=== PATIENT | female | born 1965 | race Caucasian/White ===

== ENCOUNTER 2024-10-28 08:41 | Observation (INO) ==
[2024-10-28 09:32] LABS: Basophils % (auto) 1.8 %; Eosinophils # (auto) 0.22 K/uL (0.00-0.50); Eosinophils % (auto) 3.9 %; Hematocrit (blood only) 42.1 % (37.0-47.0); Immature Granulocytes # (auto) 0.01 K/uL (0.01-0.20); Immature Granulocytes % (auto) 0.2 %; Lymphocytes # (auto) 1.55 K/uL (1.20-3.40); Lymphocytes % (auto) 27.1 %; Mean Corpuscular Hemoglobin 26.3 pg (25.0-34.0); Mean Corpuscular Hgb Conc 33.3 g/dL (32.0-36.0); Mean Corpuscular Volume 79.1 fL (80.0-100.0); Mean Platelet Volume 8.7 fL (9.4-12.4); Neutrophils # (auto) 3.43 K/uL (1.40-6.50); Platelet Count 451 K/uL (130-400); RDW Coefficient of Variation 14.2 % (11.5-14.5); RDW Standard Deviation 40.8 fL (36.4-46.3); Red Blood Count 5.32 M/uL (4.20-5.40); White Blood Count 5.71 K/ul (4.8-10.8)
[2024-10-28 09:52] LABS: Alanine Aminotransferase 19 U/L (7-52); Albumin Globulin Ratio 1.4 (0.9-2); Albumin Level 4.3 gm/dl (3.4-5.0); Alkaline Phosphatase 79 U/L (34-104); Anion Gap 7 (3-11); Aspartate Aminotransferase 21 U/L (13-39); BUN Creatinine Ratio 11.5 (10-20); Bilirubin,Total 0.4 mg/dl (0.2-1.0); Blood Urea Nitrogen 10 mg/dl (6-23); Calcium 9.5 mg/dl (8.6-10.3); Carbon Dioxide 27 mmol/L (21-32); Chloride 104 mmol/L (98-107); Creatinine Clr Calc Pharmacy 71.5 ml/min; Globulin 3.1 gm/dl (2.5-4.0); Glucose 159 mg/dl (70-99(Fasting)); Potassium 3.9 mmol/L (3.5-5.1); Sodium 138 mmol/L (136-145); Total Protein 7.4 gm/dl (6.0-8.3)
[2024-10-28 09:58] LABS: Troponin I High Sensitivity 3.2 pg/ml (0-14)
--- NOTE | 2024-10-28 09:58 | XRay Report ---
XR chest 1V portable CLINICAL HISTORY: Dyspnea. Sarcoidosis. COMPARISON STUDY: Lung screening CT May 05, 2024. Chest radiograph November 28, 2023. FINDINGS: There is no pneumothorax or pleural effusion. There is no consolidation to suggest pneumoni a. Mild interstitial thickening is likely chronic. Bilateral hilar prominence is unchanged. Cardiomed iastinal silhouette is stable. IMPRESSION: No acute cardiopulmonary findings. No change in appearance of the chest. ACT 112: Negative or not required by law. Electronically signed by: Ryan Leon M.D. 10/28/2024 9:57 AM
[2024-10-28] MEDS: ALBUTEROL 0.5% NEB SOLN 2.5 MG/0.5 ML VIAL NEB STA (10:32)
[2024-10-28 11:04] LABS: Base Excess VBG 4.8 mEq/L; HCO3 VBG 25 mmol/L; Oxygen Saturation VBG 85.2 %; PCO2 VBG 24 mmHg (38-50); PO2 VBG 42 mmHg; pH VBG 7.62 (7.36-7.41)
[2024-10-28 11:53] LABS: D Dimer 1360 ug/L FEU (0-500)
[2024-10-28] MEDS: methylPREDNISolone 125 MG/2 ML VIAL IV STA (12:59)
--- NOTE | 2024-10-28 13:03 | History & Physical Report ---
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 Mrs Daly had relief of sym ptoms in the ER with bronchodilators. #dyspnea on exertion - -differential - active pulmonary sarcoidosis vs reactive airway disease vs cardiac (ie pulmonary edema or ischemia) vs PE vs other -CTA chest planned for later today to r/o PE; has contrast allergy (rash); will have 2 doses of solumedrol 40mg each, with benadryl later today, then the scan -the steroids will provide benefit if the issue is active sarcoid -obtain echo, r/o CHF contributing to symptoms -plan for pulmonary consultation tomorrow #history of biopsy-proven pulmonary sarcoidosis - -she has never been on systemic therapy for her disease -diagnosed in 2022 -check sed rate, crp -check 1,25-OH vit D level; if high this suggests active disease -will obtain 2 doses of solumedrol today in prep for CTA chest -tomorrow change to solumedrol 40mg daily -cont bronchodilators - she typically does not do well on MDIs - will order brovana BID + pulmicort BID -pulmonary consultation for additional recs #anxiety/depression - -cont home meds including buspar prn, trazodone HS, duloxetine daily, wellbutrin #GERD - -cont PPI #hyperlipidemia - -cont zetia #previous PFTs showing +bronchodilator response - -c/w reactive airway disease -likely due to pulmonary sarcoid -see above #pre-diabetes - -glucose upon arrival today was 159 -hemoglobin a1c 6% c/w mild pre-DM -DM diet -with steroid usage her BSGs will rise -check BSGs ac/hs -novolog SSI -good candidate for once-daily metformin at d/c or similar #DVT proph - -add once daily lovenox tomorrow #long-standing tobacco use - -pt reports she had cut back to 1-2 cigarettes/day, then has been fully smoke-free last week or two -offered nicoderm patch but declined such placed on observation status for now History of Present Illness Chief Complaint: severe dyspnea particularly on exertion Primary Care Provider: Mayi Morales MD 58yo female with history of pulmonary sarcoidosis (dx 10/2022 via lung bx), prior tibial bone biopsy showing non-caseating granulomas in 2019, 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 She also had PND with orthopnea 2 nights ago. She has had dyspnea on exertion for many years, typically intermittent, but recently it has been daily and persistent. She can only walk about 50 feet at most and will get short of breath. Denies any weight gain, LE edema, or chest pain. The tightness in her chest does get better with resting. She was taking her albuterol inhaler at home without any relief of symptoms. In the ER today she received an albuterol neb x 1 with partial relief of her dyspnea. Denies any recent fevers, chills, URI symptoms, or significant cough (coughs just occasionally). No skin rashes. Denies sick contacts. Denies travel. Records indicate she was advised to have a stress test in the last year but never had this done. Denies any personal or family history of CAD. One of her sisters has sarcoid and her son has Crohn's disease. With respect to tobacco she has been using since age 11. In her younger years she smoked 1/2PPD to 1PPD. She was recently smoking 1-2 cigarettes a day or less; now she is not smoking at all. Declines nicoderm patch. Allergies Allergy/AdvReac Type Severity Reaction Status Date / Time Iodinated Contrast Media Allergy Intermediate Rash Verified 09/22/24 13:33 [email or web address] [From Myrbetriq] Allergy Intermediate Headache Verified 09/22/24 13:33 clarithromycin Allergy Unknown Unknown Verified 09/22/24 13:33 Contrast Media Ready-Box MISC Allergy Intermediate Rash Uncoded 09/22/24 13:33 STEROIDS Allergy ITCHING Uncoded 09/22/24 13:33 Budesonide-formoterol AdvReac Severe sore throat Uncoded 09/22/24 13:33 Home Medications Medication Instructions Recorded Confirmed Type multivitamin (Multiple Vitamins 1 tab PO DAILY 02/14/22 10/28/24 History tablet) krill [id number]-epa 300 1 cap PO DAILY 09/05/22 10/28/24 History mg-90 mg (27 mg-45 mg) capsule aspirin 81 mg tablet,delayed 81 mg PO DAILY 12/31/23 10/28/24 History release albuterol sulfate 90 mcg/actuation 1 inh inhalation QID PRN Shortness 02/11/24 10/28/24 Rx aerosol inhaler Of Breath Or Wheezing #6.7 grams albuterol sulfate 2.5 mg/3 mL 2.5 mg inhalation Q6H PRN 03/05/24 10/28/24 History (0.083 %) solution for nebulization shortness of breath or wheezing duloxetine 60 mg capsule,delayed 60 mg PO QAM #90 caps 03/18/24 10/28/24 Rx release (Cymbalta) ciclopirox 8 % topical solution 1 applic topical DAILY 4 months 03/26/24 10/28/24 Rx #6.6 mL Spacer for Inhaler #1 ea 05/14/24 09/08/24 Rx fremanezumab-vfrm 225 mg/1.5 mL 225 mg (1.5 mL) subcut MONTHLY 06/11/24 10/28/24 Rx subcutaneous syringe (Ayoovaba #4.5 mL Syringe) buspirone 15 mg tablet 15 mg PO BID PRN anxiety #180 tabs 07/15/24 10/28/24 Rx salmeterol 50 mcg/dose blister 1 inh inhalation Q12H #60 ea 08/10/24 10/28/24 Rx powder for inhalation (Serevent Diskus) gabapentin 600 mg tablet 600 mg PO HS #90 tabs 09/14/24 10/28/24 Rx bupropion HCl 150 mg 24 hr tablet, 150 mg PO QAM #90 tabs 09/22/24 10/28/24 Rx extended release ezetimibe 10 mg tablet 10 mg PO DAILY #90 tabs 10/06/24 10/28/24 Rx cetirizine 10 mg tablet (Allergy 10 mg PO DAILY 10/28/24 10/28/24 History Relief (cetirizine)) fluticasone propionate 50 1 spray intranasal DAILY 10/28/24 10/28/24 History mcg/actuation nasal spray,suspension lactobacillus combination no.4 3 3,000 mmu cells PO DAILY 10/28/24 10/28/24 History billion cell capsule (Probiotic) omeprazole 20 mg capsule,delayed 40 mg PO QAM 10/28/24 10/28/24 History release rizatriptan 10 mg tablet (Maxalt) 10 mg PO DIRECTED PRN migraine 10/28/24 10/28/24 History headache trazodone 50 mg tablet 50 - 100 mg PO DAILY Sleep 10/28/24 10/28/24 History Past Med/Surg History Problem List (Updated 10/28/24 @ 20:37 by Willem Tolentino MD) Prediabetes Acute exacerbation of chronic obstructive airways disease (Acute) Dyspnea on exertion (Acute) Chest pain Tremor Urinary incontinence Greater trochanteric bursitis Physical deconditioning Arthrofibrosis of total knee replacement Pulmonary sarcoidosis (Acute) Osteoarthritis of knees, bilateral Statin intolerance Headache Arthritis Medical History (Updated 10/28/24 @ 20:37 by Willem Tolentino MD) 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 Obesity (BMI 30-39.9) Cigarette nicotine dependence Lumbosacral radiculopathy Chronic migraine without aura or status migrainosus Restless leg syndrome Fatty liver Mixed hyperlipidemia Generalized anxiety disorder Gastroesophageal reflux disease Allergic rhinitis Depression Primary osteoarthritis of right knee Osteoarthritis of right knee Lesion of parotid gland s/p surgery Lumbar disc herniation Sarcoidosis Overactive bladder Post traumatic stress disorder History of COVID-19 03/2022 > "resolved" Asthma Bilateral hilar adenopathy syndrome Pulmonary nodules EBUS + bx 11/02/22 Surgical History Status post right knee replacement 05/17/23 H/O parotidectomy Left Superficial Parotidectomy (01/04/23): Grade view 1, MAC#3, ETT 7 at [facility] S/P bronchoscopy Bronchoscopy/EBUS (11/02/22): GA, LMA #4 I-Gel without issue H/O foot surgery Right History of anesthesia reaction "Awareness" with foot surgery and colonoscopy Remote post-op nausea History of partial hysterectomy History of esophagogastroduodenoscopy (EGD) History of colonoscopy History of tooth extraction Hx laparoscopic cholecystectomy History of repair of right rotator cuff Right History of arthroscopy of left knee Family History (Updated 10/28/24 @ 13:38 by Willem Tolentino MD) Aunt Breast cancer Sister Sarcoid Son Crohn's disease Grandfather (Maternal) Heart disease Mother , age 70 Dementia Father , age 63 Diabetes Other No family history of adverse response to anesthesia Denies family history of Ovarian cancer Prostate cancer Coronary heart disease Myocardial infarction Colorectal cancer Social History (Updated 10/28/24 @ 13:39 by Willem Tolentino MD) Smoking Status: Never smoker Tobacco Type: Cigarettes Age Started Using Tobacco: 11; packs per day: 1; Cigarettes Per Day: 2 cigs/day (previous 2PPD); Second Hand Exposure: Yes (hx in the past); Do You Dip or Chew Tobacco: No; Hx Alcohol Use: No Hx Substance Use: No Preferred Language: Hungarian Communication Ability: Effective Nurse Anesthetist Required: No Beliefs That Will Affect Care: None marital status: / marital status details: Spouse Current Living Situation: Alone Current Living Situation Comment: lives at [facility] current occupational status: employed current occupation: PATIENT ACCESS REGISTRATION at [employer] How many Children do You have: 1 How many Children do You have Comment: son lives in [place] Other Information That Helps Us Care for You: No Feels Safe at Home: Yes Safety Concerns: Feels Safe At This Time Physical Activity Frequency Comment: MODERATELY ACTIVE Assistive Devices: Denture - Upper, Denture - Lower and Glasses Review of Systems Review of Systems: gen - no fevers, no chills, normal appetite, no weight loss or significant gain recently eyes - no visual changes HENT - no URI symptoms; no chronic sinus issues; no oral lesions; no sore throat neck - no pain lymph - denies swollen glands in any location CV - chest tightness with exertion; had PND/orthopnea 2 nights ago at home; denies edema of legs/feet pulm - minimal cough; +dyspnea at rest (at times); +LEAL with any walking; no wheezing; no sputum GI - no N/V/D/abd pain or blood in stool - no LUTS musculo - chronic OA of knees, hands, etc neuro - no headaches at this time but does have h/o migraines skin - no rashes endo - denies diabetes Physical Exam Physical Exam: gen - NAD, resting comfortably in bed, pleasant; no respiratory distress eyes - PERRL HENT - TMs clear b/l, nose clear, mouth - MMM; no lesions neck - no JVD; parotid gland removed from left face; no lymph nodes heart - RRR, s1 s2, no murmur lungs - mild b/l basilar rales, no wheeze, airation decreased bases, no distress abd - soft NT ND BS+; no HSM ext - no edema, pulses 2+ b/l feet neuro - strength 5/5 x 4 exts; DTRs 1+ b/l upper & lower exts skin - multiple tattoos; no rash psych - a/o x 3; mildly anxious Results & Data Results & Data Vital Signs (Past 12 Hours) Vital Signs Temp Pulse Pulse Resp BP BP Pulse Ox 10/28/24 13:02 90 20 149/85 H 95 10/28/24 11:48 84 20 130/74 94 10/28/24 09:29 84 10/28/24 09:14 97 10/28/24 09:00 89 26 H 138/80 96 10/28/24 08:58 97 10/28/24 08:58 10/28/24 08:48 36.0 C L 102 H 24 143/84 H 97 O2 Del Method 10/28/24 13:02 Room Air 10/28/24 11:48 Room Air 10/28/24 09:29 10/28/24 09:14 Room Air 10/28/24 09:00 Room Air 10/28/24 08:58 Room Air 10/28/24 08:58 Room Air 10/28/24 08:48 Room Air Laboratory Results Laboratory Results - last 24 hr 10/28/24 10/28/24 10/28/24 08:59 10:55 13:45 WBC 5.71 RBC 5.32 Hgb 14.0 Hct 42.1 MCV 79.1 L MCH 26.3 MCHC 33.3 RDW Std Deviation 40.8 RDW Coeff of Yadiel 14.2 Plt Count 451 H MPV 8.7 L Immature Gran % (Auto) 0.2 Neut % (Auto) 60.0 Lymph % (Auto) 27.1 [place] % (Auto) 7.0 Eos % (Auto) 3.9 Baso % (Auto) 1.8 Neut # (Auto) 3.43 Lymph # (Auto) 1.55 [place] # (Auto) 0.40 Eos # (Auto) 0.22 Baso # (Auto) 0.10 Immature Gran # (Auto) 0.01 ESR Pending D-Dimer 1360 H* VBG pH 7.62 H VBG pCO2 24 L VBG pO2 42 VBG HCO3 25 VBG O2 Saturation 85.2 VBG Base Excess 4.8 Sodium 138 Potassium 3.9 Chloride 104 Carbon Dioxide 27 Anion Gap 7 BUN 10 Creatinine 0.87 Est Cr Clr Drug Dosing 71.5 eGFR 76.23 BUN/Creatinine Ratio 11.5 Glucose 159 H Estimat Average Glucose Pending Hemoglobin A1c Pending Calcium 9.5 Total Bilirubin 0.4 AST 21 ALT 19 Alkaline Phosphatase 79 Troponin I High Sens 3.2 C-Reactive Protein Pending Total Protein 7.4 Albumin 4.3 Globulin 3.1 Albumin/Globulin Ratio 1.4 Vit D 1,25-Dihyd Total Pending 1,25 Dihydroxy Vit D2 Pending 1,25 Dihydroxy Vit D3 Pending SARS-CoV-2 (PCR) Pending Influenza Type A (PCR) Pending Influenza Type B (PCR) Pending RSV (RT-PCR) Pending Diagnostic Findings Chest X-Ray 10/28/24 09:13 XR chest 1V portable CLINICAL HISTORY: Dyspnea. Sarcoidosis. COMPARISON STUDY: Lung screening CT May 05, 2024. Chest radiograph November 28, 2023. FINDINGS: There is no pneumothorax or pleural effusion. There is no consolidation to suggest pneumonia. Mild interstitial thickening is likely chronic. Bilateral hilar prominence is unchanged. Cardiomediastinal silhouette is stable. IMPRESSION: No acute cardiopulmonary findings. No change in appearance of the chest. ACT 112: Negative or not required by law. Electronically signed by: Ryan Leon M.D. 10/28/2024 9:57 AM EKG - NSR, no ST changes Code Status & VTE Plan Code Status DNR/DNI - confirmed with patient PG Care Time/CCT Total # of Minutes Spent Total Time Spent with Patient: Total time spent is greater than 50% in coordination of care (as documented) at patient's floor/unit and/or counseling patient: Coding Level of Care Code 06102 INT INP/OBS CARE 375MIN Diagnoses Dyspnea on exertion R06.09 Pulmonary sarcoidosis D86.0 Cigarette nicotine dependence F17.210 Mixed hyperlipidemia E78.2 Generalized anxiety disorder F41.1 Gastroesophageal reflux disease K21.9 Depression F32.A Asthma J45.909 Prediabetes R73.03
[2024-10-28 13:51] LABS: C Reactive Protein < 0.50 mg/dl (0-0.5)
[2024-10-28] MEDS ORDERED: ACETAMINOPHEN 325 MG TAB PO PRN (14:27)
[2024-10-28] MEDS ORDERED: ONDANSETRON INJ 2 MG/ML 2 ML VIAL IV PRN (14:27)
[2024-10-28] MEDS ORDERED: ALBUT/IPRATROP 3MG/0.5MG NEB 3 ML VIAL NEB PRN (14:27)
[2024-10-28] MEDS ORDERED: MELATONIN 3 MG TAB PO PRN (14:27)
[2024-10-28] MEDS ORDERED: ALBUTEROL HFA 8 GM INHALER INH PRN (14:27)
[2024-10-28 14:31] LABS: Estimated Average Glucose 126 mg/dl
[2024-10-28 14:32] LABS: Influenza A virus by PCR Negative (Neg); Influenza B virus by PCR Negative (Neg); RSV by PCR Negative (Neg); SARS CoV2 RNA(COVID-19) Ceph NEGATIVE (Negative)
[2024-10-28] MEDS: diphenhydrAMINE 50 MG/ML VIAL IV ONE ×2 (14:44→17:24)
--- NOTE | 2024-10-28 15:41 | Emergency Department Note ---
Impression & Plan Pulmonary sarcoidosis, Dyspnea on exertion, Acute exacerbation of chronic obstructive airways disease ED Provider Note NAME: PATSY LIMA AGE: 58 SEX: F : 1965 ARRIVES VIA: Walk-In INFORMANT: Patient, ED PROVIDER(S): Pilo Harp MD CHIEF COMPLAINT: Shortness of breath HPI: This is a 58-year-old female presenting for shortness of breath. Patient has a history of sarcoidosis. She notes that over past 1 week she has had increasing shortness of breath, exertional. She notes negative cough or congestion. No new cough. She was no fevers, chills. She does follow with pulmonology. She knows she supposed be on strong inhalers for which she has adverse reactions to. She was at her lungs with her burning at this time. She is having difficulty speaking as result of his shortness of breath. No chest pain. ROS: See above HPI for pertinent positives & negatives. A total of 10 systems reviewed and were otherwise negative. PAST MEDICAL HISTORY: See Below PAST SURGICAL HISTORY: See Below FAMILY HISTORY: See Below SOCIAL HISTORY: See Below HOME MEDICATIONS: See Below ALLERGIES: See Below VITALS: See Below PHYSICAL EXAMINATION: General: resting comfortably in no acute distress Head: Normocephalic and atraumatic Eyes: Normal inspection, extraocular muscles intact Ear, nose, throat: Normal external exam Neck: Normal range of motion Respiratory: lungs clear to auscultation bilaterally Cardiovascular: Regular rate/rhythm, no murmur GI: soft, nontender, no guarding or rebound Extremities: nontender, moves all extremities Neuro: The patient awake and alert, appropriately conversive, no focal deficits, symmetric faces Skin: Warm, dry, and intact MEDICAL DECISION MAKING: This is a 58-year-old female presenting for shortness of breath. Patient has no abnormal lung sounds but she is conversational dyspnea on my examination. She only see about 5 words before needing to take a breath. Will give her albuterol treatment at this time. Will do screening chest x-ray and basic blood work. Low concern for ACS or PE clinically she is not tachycardic. Discussed care with her pulmonology, Dr. Rios, who recommends D-dimer and further workup. -Bloodwork is reviewed showing no significant leukocytosis, anemia, electrolyte or creatinine abnormality. Negative troponin -Patient is about 50% improvement after first albuterol treatment. -VBG is 7.62 and 24 -Chest Xray independently interpreted by me showing no pneumothorax, focal opacity, or pleural effusions. -D-dimer does return elevated however she has a contrast allergy. Will do 5- hour protocol for steroids and Benadryl. -Patient will admitted for further shortness of breath workup, CT imaging and shortness of breath. Differential diagnosis: Sarcoidosis, pulm hypertension, PE, pneumonia Diagnostics interpreted by me: ECG: ECG independently interpreted by me with normal sinus rhythm, rate of 91, normal PA, incomplete right bundle branch block, normal QTc, no ST segment elevations consistent with STEMI criteria Cardiac Monitoring: An order was placed for continuous cardiac monitoring. The monitor shows a rate of 89 with sinus rhythm. 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 Obesity (BMI 30-39.9) Cigarette nicotine dependence Lumbosacral radiculopathy Chronic migraine without aura or status migrainosus Restless leg syndrome Fatty liver Mixed hyperlipidemia Generalized anxiety disorder Gastroesophageal reflux disease Allergic rhinitis Depression Primary osteoarthritis of right knee Osteoarthritis of right knee Lesion of parotid gland s/p surgery Lumbar disc herniation Sarcoidosis Overactive bladder Post traumatic stress disorder History of COVID-19 03/2022 > "resolved" Asthma Bilateral hilar adenopathy syndrome Pulmonary nodules EBUS + bx 11/02/22 Surgical History Status post right knee replacement 05/17/23 H/O parotidectomy Left Superficial Parotidectomy (01/04/23): Grade view 1, MAC#3, ETT 7 at [facility] S/P bronchoscopy Bronchoscopy/EBUS (11/02/22): GA, LMA #4 I-Gel without issue H/O foot surgery Right History of anesthesia reaction "Awareness" with foot surgery and colonoscopy Remote post-op nausea History of partial hysterectomy History of esophagogastroduodenoscopy (EGD) History of colonoscopy History of tooth extraction Hx laparoscopic cholecystectomy History of repair of right rotator cuff Right History of arthroscopy of left knee Family History (Updated 10/28/24 @ 13:38 by Willem Tolentino MD) Aunt Breast cancer Sister Sarcoid Son Crohn's disease Grandfather (Maternal) Heart disease Mother , age 70 Dementia Father , age 63 Diabetes Other No family history of adverse response to anesthesia Denies family history of Ovarian cancer Prostate cancer Coronary heart disease Myocardial infarction Colorectal cancer Social History (Updated 10/28/24 @ 13:39 by Willem Tolentino MD) Smoking Status: Never smoker Tobacco Type: Cigarettes Age Started Using Tobacco: 11; packs per day: 1; Cigarettes Per Day: 2 cigs/day (previous 2PPD); Second Hand Exposure: Yes (hx in the past); Do You Dip or Chew Tobacco: No; Hx Alcohol Use: No Hx Substance Use: No Preferred Language: Armenian Communication Ability: Effective Machine Attendant Required: No Beliefs That Will Affect Care: None marital status: / marital status details: Spouse Current Living Situation: Alone Current Living Situation Comment: lives at [facility] current occupational status: employed current occupation: PATIENT ACCESS REGISTRATION at [employer] How many Children do You have: 1 How many Children do You have Comment: son lives in [place] Other Information That Helps Us Care for You: No Feels Safe at Home: Yes Safety Concerns: Feels Safe At This Time Physical Activity Frequency Comment: MODERATELY ACTIVE Assistive Devices: Denture - Upper, Denture - Lower and Glasses Allergies Allergies Allergy/AdvReac Type Severity Reaction Status Date / Time Iodinated Contrast Media Allergy Intermediate Rash Verified 09/22/24 13:33 [email or web address] [From [email or web address]] Allergy Intermediate Headache Verified 09/22/24 13:33 clarithromycin Allergy Unknown Unknown Verified 09/22/24 13:33 Contrast Media Ready-Box MISC Allergy Intermediate Rash Uncoded 09/22/24 13:33 STEROIDS Allergy ITCHING Uncoded 09/22/24 13:33 Budesonide-formoterol AdvReac Severe sore throat Uncoded 09/22/24 13:33 Home Meds Home Medications Medication Instructions Recorded Confirmed multivitamin (Multiple Vitamins 1 tab PO DAILY 02/14/22 10/28/24 tablet) krill [id number] 300 1 cap PO DAILY 09/05/22 10/28/24 mg-90 mg (27 mg-45 mg) capsule aspirin 81 mg tablet,delayed 81 mg PO DAILY 12/31/23 10/28/24 release albuterol sulfate 2.5 mg/3 mL 2.5 mg inhalation Q6H PRN 03/05/24 10/28/24 (0.083 %) solution for nebulization shortness of breath or wheezing cetirizine 10 mg tablet (Allergy 10 mg PO DAILY 10/28/24 10/28/24 Relief (cetirizine)) fluticasone propionate 50 1 spray intranasal DAILY 10/28/24 10/28/24 mcg/actuation nasal spray,suspension lactobacillus combination no.4 3 3,000 mmu cells PO DAILY 10/28/24 10/28/24 billion cell capsule (Probiotic) omeprazole 20 mg capsule,delayed 40 mg PO QAM 10/28/24 10/28/24 release rizatriptan 10 mg tablet (Maxalt) 10 mg PO DIRECTED PRN migraine 10/28/24 10/28/24 headache trazodone 50 mg tablet 50 - 100 mg PO DAILY Sleep 10/28/24 10/28/24 Previous Rx's Medication Instructions Recorded albuterol sulfate 90 mcg/actuation 1 inh inhalation QID PRN Shortness 02/11/24 aerosol inhaler Of Breath Or Wheezing #6.7 grams duloxetine 60 mg capsule,delayed 60 mg PO QAM #90 caps 03/18/24 release (Cymbalta) ciclopirox 8 % topical solution 1 applic topical DAILY 4 months 03/26/24 #6.6 mL Spacer for Inhaler #1 ea 05/14/24 fremanezumab-vfrm 225 mg/1.5 mL 225 mg (1.5 mL) subcut MONTHLY 06/11/24 subcutaneous syringe (every[employer] Access Software #4.5 mL Syringe) buspirone 15 mg tablet 15 mg PO BID PRN anxiety #180 tabs 07/15/24 salmeterol 50 mcg/dose blister 1 inh inhalation Q12H #60 ea 08/10/24 powder for inhalation (Serevent Diskus) gabapentin 600 mg tablet 600 mg PO HS #90 tabs 09/14/24 bupropion HCl 150 mg 24 hr tablet, 150 mg PO QAM #90 tabs 09/22/24 extended release ezetimibe 10 mg tablet 10 mg PO DAILY #90 tabs 10/06/24 Results & Data (ED) Vital Signs Vital Signs - 24 hr 10/28/24 08:48 10/28/24 08:58 10/28/24 08:58 Temperature 36.0 C L Temperature Source Skin Pulse Rate 102 H Pulse Rate [Apical] Pulse Rhythm [Apical] Pulse Strength [Apical] Respiratory Rate 24 Respiratory Effort / Characteristics Spontaneous Labored Short of Breath Respiratory Depth Respiratory Pattern Tachypnea Tachypnea Blood Pressure 143/84 H Blood Pressure [Left Arm] Blood Pressure Mean 103 Blood Pressure Mean [Left Arm] Pulse Oximetry 97 97 Oxygen Delivery Method Room Air Room Air Room Air Sepsis Recent Fever Within 48 Hours No Sepsis New/Unexplained Change in Mental Status N/A Sepsis Action Taken by Nursing No Action Required 10/28/24 09:00 10/28/24 09:14 10/28/24 09:29 Temperature Temperature Source Pulse Rate 84 Pulse Rate [Apical] 89 Pulse Rhythm [Apical] Regular Pulse Strength [Apical] Normal Respiratory Rate 26 H Respiratory Effort / Characteristics Spontaneous Labored Short of Breath Respiratory Depth Respiratory Pattern Tachypnea Blood Pressure Blood Pressure [Left Arm] 138/80 Blood Pressure Mean Blood Pressure Mean [Left Arm] 99 Pulse Oximetry 96 97 Oxygen Delivery Method Room Air Room Air Sepsis Recent Fever Within 48 Hours Sepsis New/Unexplained Change in Mental Status Sepsis Action Taken by Nursing 10/28/24 11:48 10/28/24 13:02 Temperature Temperature Source Pulse Rate Pulse Rate [Apical] 84 90 Pulse Rhythm [Apical] Pulse Strength [Apical] Respiratory Rate 20 20 Respiratory Effort / Characteristics Non-Labored Spontaneous Non-Labored Spontaneous Respiratory Depth Normal Respiratory Pattern Blood Pressure Blood Pressure [Left Arm] 130/74 149/85 H Blood Pressure Mean Blood Pressure Mean [Left Arm] 92 106 Pulse Oximetry 94 95 Oxygen Delivery Method Room Air Room Air Sepsis Recent Fever Within 48 Hours Sepsis New/Unexplained Change in Mental Status Sepsis Action Taken by Nursing Laboratory Data 10/28/24 08:59 10/28/24 08:59 Lab Results 10/28/24 10/28/24 Range/Units 08:59 10:55 WBC 5.71 (4.8-10.8) K/ul RBC 5.32 (4.20-5.40) M/uL Hgb 14.0 (12.0-16.0) g/dl Hct 42.1 (37.0-47.0) % MCV 79.1 L (80.0-100.0) fL MCH 26.3 (25.0-34.0) pg MCHC 33.3 (32.0-36.0) g/dL RDW Std Deviation 40.8 (36.4-46.3) fL RDW Coeff of Yadiel 14.2 (11.5-14.5) % Plt Count 451 H (130-400) K/uL MPV 8.7 L (9.4-12.4) fL Immature Gran % (Auto) 0.2 % Neut % (Auto) 60.0 % Lymph % (Auto) 27.1 % Jay % (Auto) 7.0 % Eos % (Auto) 3.9 % Baso % (Auto) 1.8 % Neut # (Auto) 3.43 (1.40-6.50) K/uL Lymph # (Auto) 1.55 (1.20-3.40) K/uL Jay # (Auto) 0.40 (0.11-0.59) K/uL Eos # (Auto) 0.22 (0.00-0.50) K/uL Baso # (Auto) 0.10 (0.00-0.20) K/uL Immature Gran # (Auto) 0.01 (0.01-0.20) K/uL ESR 38 H (0-30) mm/hr D-Dimer 1360 H* (0-500) ug/L FEU VBG pH 7.62 H (7.36-7.41) VBG pCO2 24 L (38-50) mmHg VBG pO2 42 mmHg VBG HCO3 25 mmol/L VBG O2 Saturation 85.2 % VBG Base Excess 4.8 mEq/L Sodium 138 (136-145) mmol/L Potassium 3.9 (3.5-5.1) mmol/L Chloride 104 (98-107) mmol/L Carbon Dioxide 27 (21-32) mmol/L Anion Gap 7 (3-11) BUN 10 (6-23) mg/dl Creatinine 0.87 (0.6-1.2) mg/dl Est Cr Clr Drug Dosing 71.5 ml/min eGFR 76.23 BUN/Creatinine Ratio 11.5 (10-20) Glucose 159 H (70-99(Fasting)) mg/dl Estimat Average Glucose 126 mg/dl Hemoglobin A1c 6.0 H (4.5-5.6) % Calcium 9.5 (8.6-10.3) mg/dl Total Bilirubin 0.4 (0.2-1.0) mg/dl AST 21 (13-39) U/L ALT 19 (7-52) U/L Alkaline Phosphatase 79 (34-104) U/L Troponin I High Sens 3.2 (0-14) pg/ml C-Reactive Protein < 0.50 (0-0.5) mg/dl Total Protein 7.4 (6.0-8.3) gm/dl Albumin 4.3 (3.4-5.0) gm/dl Globulin 3.1 (2.5-4.0) gm/dl Albumin/Globulin Ratio 1.4 (0.9-2) Administered Medications Diphenhydramine HCl (Diphenhydramine 50 Mg/Ml Vial) 50 mg IV ONE ONE Stop: 10/28/24 16:11 Last Admin: 10/28/24 14:44 Dose: Not Given Documented By: KBB Discontinued Medications Albuterol (Albuterol 0.5% Neb Soln 2.5 Mg/0.5 Ml Vial) 2.5 mg NEB NOW STA; Protocol Stop: 10/28/24 10:23 Last Admin: 10/28/24 10:32 Dose: 2.5 mg Documented By: SALLY Methylprednisolone (Methylprednisolone 125 Mg/2 Ml Vial) 40 mg IV NOW STA Stop: 10/28/24 12:11 Last Admin: 10/28/24 12:59 Dose: 40 mg Documented By: DS Imaging Data Radiologist's Impression: Chest X-Ray 10/28/24 09:13 XR chest 1V portable CLINICAL HISTORY: Dyspnea. Sarcoidosis. COMPARISON STUDY: Lung screening CT May 05, 2024. Chest radiograph November 28, 2023. FINDINGS: There is no pneumothorax or pleural effusion. There is no consolidation to suggest pneumonia. Mild interstitial thickening is likely chronic. Bilateral hilar prominence is unchanged. Cardiomediastinal silhouette is stable. IMPRESSION: No acute cardiopulmonary findings. No change in appearance of the chest. ACT 112: Negative or not required by law. Electronically signed by: Ryan Leon M.D. 10/28/2024 9:57 AM Discharge Plan Visit Data Chief Complaint: Shortness of Breath/Dyspnea Stated Complaint: SOB ED Provider: Pilo Harp Discharge Problem: Pulmonary sarcoidosis, Dyspnea on exertion, Acute exacerbation of chronic obstructive airways disease Patient Disposition: Admitted As Inpatient Discharge Instructions Interventions: ED Discharge Assessment Last Done: 10/28/24 14:00
[2024-10-28] MEDS: methylPREDNISolone 40 MG in SYRINGE 0 ML IV ONE ×2 (17:23→21:56)
[2024-10-28] MEDS ORDERED: methylPREDNISolone 125 MG/2 ML VIAL IV ONE (18:00)
[2024-10-28] MEDS: OPTIRAY 320 125ml IV ONE (18:12)
[2024-10-28 19:41] VITALS: RESP 18
[2024-10-28] MEDS: BUDESONIDE 0.25 MG/2 ML VIAL (PULMICORT) NEB SCH (19:41)
[2024-10-28] MEDS: FORMOTEROL 20 MCG/2 ML VIAL INH SCH (19:41)
--- NOTE | 2024-10-28 20:14 | CT Scan Report ---
EXAM: CT angio chest PE protocol CLINICAL HISTORY: pulmonary embolism TECHNIQUE: CT angiography of the chest was performed with intravenous contrast ( 118ml of [id number] ) with the following protocol: axial images with, reconstructed coronal and sagittal images. Non-contrast images were initially acquired, followed by contrast-enhanced images in arterial and venous phases. Intravenous contrast [name and volume] was administered using automated injection techniques. Bolus tracking was employed to optimize arterial phase imaging. One of these 3D techniques was utilized: Maximum Intensity Pixel (MIP), 3D Reconstructed Images, Volume Rendered Images, Surface Shaded Rendering. One of the following dose reduction techniques was utilized for this exam: Automated exposure control, adjustment of the mA and/or kV according to patient size, and use of iterative reconstruction. COMPARISON: 05/05/2024. FINDINGS: Suboptimal study due to inappropriate timing, Aorta and Great Vessels: Ascending Aorta: Normal in caliber, no aneurysm, dissection, or significant atherosclerosis. Aortic Arch: Normal in caliber, no aneurysm, dissection, or significant atherosclerosis. Descending Aorta: Normal in caliber, no aneurysm, dissection, or significant atherosclerosis. Pulmonary Arteries: The main pulmonary trunk measures 3 cm, indicating possible pulmonary hypertension. Further clinical evaluation is advised. No filling defects seen till the 2nd generation, yet there is possible periarterial thickening /nodularity seen at the right upper apical and posterior medial segments 3rd generation branches could be periarterial thickening. Heart: Cardiac Chambers: Normal in size. No evidence of cardiomegaly. Pericardium: No pericardial effusion or thickening. Lungs and Pleura: Consolidation patches are seen at the right middle lobe with air bronchograms. Right lung upper lobe 8 mm solid nodule. Axila image #[id number] unchanged Left lung upper lobe lateral segment 4 mm calcified nodule. axial image #140/[id number] unchanged No pleural effusion or pleural thickening. Mediastinum: Enlarging the calcified mediastinal and bilateral bronchial lymphadenopathies, the largest is seen at the para-aortic area, measuring 4 x 1.6 cm. Normal appearance of the trachea and central bronchi. Hilar Structures: Hilar structures are normal without enlargement. Chest Wall: No mass lesions or abnormalities in the chest wall. Vascular Structures: Superior Vena Cava: Patent without evidence of stenosis or thrombus. Inferior Vena Cava: Patent without evidence of stenosis or thrombus. Bones and Soft Tissues: Cholecystectomy. No fractures, lytic, or blastic lesions of the visualized bony structures. Soft tissues are unremarkable. IMPRESSION: 1. Suboptimal study due to inappropriate timing. However no evidence of pulmonary embolism up to 2nd generation. 2. Periarterial thickening /nodularity seen at the right upper apical and posterior medial pulmonary arterial segments. Advised clinical correlation. 3. Mildly dilated main pulmonary trunk, indicating possible pulmonary hypertension. Further clinical evaluation is advised. 4. Stable bilateral upper lobe nodules measuring up to 8mm, consolidation patches at the right middle lobe and partially calcified mediastinal and hilar lymphadenipathies, likely sequelae of prior inflammatory/infectious process. Electronically signed by Job Allen 10-28-2024 8:14 PM
[2024-10-28] MEDS: GABAPENTIN 600 MG TAB PO SCH (20:15)
[2024-10-28] MEDS: traZODone HCL 50 MG TAB PO SCH (20:15)
[2024-10-28 20:34] LABS: Appearance Urine Clear (Clear); Bilirubin Urine Negative (Negative); Blood Urine Negative (Negative); Color Urine Yellow; Glucose Urine UA Negative (Negative); Ketones Urine Negative (Negative); Leukocyte Esterase Urine Negative (Negative); Nitrite Urine Negative (Negative); Protein Urine Negative (Negative); Specific Gravity Urine > 1.045 (1.000-1.030); Urobilinogen Urine Negative (Negative)
[2024-10-28] MEDS: INSULIN ASPART PER UNIT CHARGE SC SCH (21:57)
[2024-10-29 08:05] LABS: BUN Creatinine Ratio 14.1 (10-20); Calcium 9.5 mg/dl (8.6-10.3); Creatinine Clr Calc Pharmacy 78.5 ml/min
[2024-10-29] MEDS ORDERED: NON-FORMULARY MEDICATION (Ciclopirox 8 % solution) TOP SCH (09:00)
[2024-10-29] MEDS: EZETIMIBE 10 MG TAB PO SCH (09:01)
[2024-10-29] MEDS: buPROPion XL 150 MG TABCR PO SCH (09:01)
[2024-10-29] MEDS: DULoxetine HCL 60 MG CAP PO SCH (09:01)
[2024-10-29] MEDS: MULTIVITAMIN TAB PO SCH (09:01)
[2024-10-29] MEDS: CETIRIZINE HCL 10 MG TABLET PO SCH (09:01)
[2024-10-29] MEDS: ASPIRIN 81 MG ECTAB PO SCH (09:01)
[2024-10-29] MEDS: busPIRone 15 MG TAB PO PRN (09:01)
[2024-10-29] MEDS: PANTOprazole 40 MG TAB PO SCH (09:01)
[2024-10-29] MEDS: FLUTICASONE PROPIONATE NA SPR 16 GM BTL SCH (09:02)
[2024-10-29] MEDS: ENOXAPARIN INJ 40 MG/0.4 ML SYR SQ SCH (09:04)
--- NOTE | 2024-10-29 09:47 | Electrocardiogram Report ---
Test Reason : Blood Pressure : */* mmHG Vent. Rate : 91 BPM Atrial Rate : 91 BPM P-R Int : 150 ms QRS Dur : 94 ms QT Int : 348 ms P-R-T Axes : 53 157 62 degrees QTcB Int : 428 ms Normal sinus rhythm Left posterior fascicular block Abnormal ECG When compared with ECG of 05-Mar-2024 09:25, Incomplete right bundle branch block is no longer Present Confirmed by Chad Nelson ([id number]) on 10/29/2024 9:46:47 AM Referred By: REFERRED SELF Confirmed By: Chad Nelson
[2024-10-29] MEDS: methylPREDNISolone 40 MG in SYRINGE 0 ML IV SCH (10:10)
--- NOTE | 2024-10-29 10:29 | Pulmonary Consultation ---
Date of Consultation October 29, 2024 Assessment & Plan (1) Acute exacerbation of chronic obstructive airways disease: (2) Dyspnea on exertion: (3) Obesity (BMI 30-39.9): (4) Cigarette nicotine dependence: (5) Pulmonary sarcoidosis: (6) Pulmonary nodules: Plan CT chest 10/28/2024 personally reviewed: Multiple pulmonary nodules appreciated bilaterally Atelectasis with possible bronchiectasis of the medial segment of the lingula Minimal mediastinal lymphadenopathy with bilateral hilar calcified lymph nodes PFT 05/20/2024 personally reviewed: Significant bronchodilator response with no obstructive lung dysfunction, air trapping, normal DLCO FVC 2.51 L 80%, FEV1 1.86 L 76%, FEV1/FVC 74%, RV 139%, TLC 104%, RV/TLC 134%, DLCO 94% 2D echo 10/29/2024: EF 60-65%, RV normal in size and function --Exertional shortness of breath Likely secondary to exacerbation of underlying asthma-COPD overlap syndrome Does have childhood history of asthma Respiratory viral panel negative for influenza A/B, RSV as well as COVID-19 -- Sarcoidosis Diagnosed with EBUS October 2022, station 7 lymph node showing single granuloma Has not tolerated budesonide or formoterol in the past. But does say the Symbicort helps and no other inhalers new. The only thing which helps her is beta agonist as per the notes from the primary spot worker ESR 38, no lymphopenia Alkalotic on VBG at presentation AST/ALT/alk phos within normal limit, CRP negative, calcium 9.5 with albumin 4.3 -- Ex-smoker [id number] smoking history quit August 2024 --Anxiety/depression On medications That could also be playing a role -- Obesity 30 pound weight gain in the recent past Weight loss would also help overall with health along with breathing Plan: The probability of patient having flareup of sarcoidosis is very low given the minimally elevated ESR and negative CRP Her AST ALT alk phos are also within normal limit along with calcium I would treat this as if the patient has exacerbation of possible Asthma-COPD from the significant smoking history that she has Continue with nebulized budesonide and formoterol. She is tolerating the nebulized treatment She also stated the Symbicort has helped in the past. Recommend discharging the patient on Symbicort 80-4.5 mcg 2 puffs twice a day Cornel as needed Consider pulmonary rehab as an outpatient, will defer to outpatient pulmonology No clear signs of infection on the CT chest done 10/28/2024. Would recommend antibiotic for COPD exacerbation DC Solu-Medrol I discussed the case with primary team on the phone I spent more than 75 minutes looking in the chart, images, discussing the plan of care with the patient, RN as well as primary team Please note the above document was generated using voice recognition software. It may contain grammatical, syntax or spelling errors.Any formal questions or concerns about the content, text or information contained within the body of this dictation should be directly addressed to the provider for clarification. History of Present Illness Attending Physician: Dany Cain MD History of Present Illness 58-year-old female presented to the hospital for shortness of breath Past medical history: Sarcoidosis, COPD Pulmonary consulted for the same Patient follows up with Dr. Rios as an outpatient At the time of examination patient was saturating 95-96% on room air. She was not any respiratory distress She stated that she has been having issues with her breathing on exertion. She is able to walk less than a block before she has to stop to catch her breath Is associated mostly with huffing and puffing with occasional wheezing. Denies any dizziness, lightheadedness, no nausea or vomiting at that time. No dysuria, no diarrhea No unusual headache. Patient does have chronic blurry vision because of her cataracts Has gained approximately 30 pounds in the last year or so. No night sweats Social history: [id number] smoking history, quit approximately a month ago. Used to work in the ER. Right now having desk job Child with history of asthma No history of lung cancer in the family Strong family history of sarcoidosis in sister Allergies Allergy/AdvReac Type Severity Reaction Status Date / Time Iodinated Contrast Media Allergy Intermediate Rash Verified 09/22/24 13:33 [email or web address] [From Myrbetriq] Allergy Intermediate Headache Verified 09/22/24 13:33 clarithromycin Allergy Unknown Unknown Verified 09/22/24 13:33 Contrast Media Ready-Box MISC Allergy Intermediate Rash Uncoded 09/22/24 13:33 STEROIDS Allergy ITCHING Uncoded 09/22/24 13:33 Budesonide-formoterol AdvReac Severe sore throat Uncoded 09/22/24 13:33 Home Medications Medication Instructions Recorded Confirmed Type multivitamin (Multiple Vitamins 1 tab PO DAILY 02/14/22 10/28/24 History tablet) krill [id number]-5-dha-epa 300 1 cap PO DAILY 09/05/22 10/28/24 History mg-90 mg (27 mg-45 mg) capsule aspirin 81 mg tablet,delayed 81 mg PO DAILY 12/31/23 10/28/24 History release albuterol sulfate 90 mcg/actuation 1 inh inhalation QID PRN Shortness 02/11/24 10/28/24 Rx aerosol inhaler Of Breath Or Wheezing #6.7 grams albuterol sulfate 2.5 mg/3 mL 2.5 mg inhalation Q6H PRN 03/05/24 10/28/24 History (0.083 %) solution for nebulization shortness of breath or wheezing duloxetine 60 mg capsule,delayed 60 mg PO QAM #90 caps 03/18/24 10/28/24 Rx release (Cymbalta) ciclopirox 8 % topical solution 1 applic topical DAILY 4 months 03/26/24 10/28/24 Rx #6.6 mL Spacer for Inhaler #1 ea 05/14/24 09/08/24 Rx fremanezumab-vfrm 225 mg/1.5 mL 225 mg (1.5 mL) subcut MONTHLY 06/11/24 10/28/24 Rx subcutaneous syringe (Ayoovaba #4.5 mL Syringe) buspirone 15 mg tablet 15 mg PO BID PRN anxiety #180 tabs 07/15/24 10/28/24 Rx gabapentin 600 mg tablet 600 mg PO HS #90 tabs 09/14/24 10/28/24 Rx bupropion HCl 150 mg 24 hr tablet, 150 mg PO QAM #90 tabs 09/22/24 10/28/24 Rx extended release ezetimibe 10 mg tablet 10 mg PO DAILY #90 tabs 10/06/24 10/28/24 Rx cetirizine 10 mg tablet (Allergy 10 mg PO DAILY 10/28/24 10/28/24 History Relief (cetirizine)) fluticasone propionate 50 1 spray intranasal DAILY 10/28/24 10/28/24 History mcg/actuation nasal spray,suspension lactobacillus combination no.4 3 3,000 mmu cells PO DAILY 10/28/24 10/28/24 History billion cell capsule (Probiotic) omeprazole 20 mg capsule,delayed 40 mg PO QAM 10/28/24 10/28/24 History release rizatriptan 10 mg tablet (Maxalt) 10 mg PO DIRECTED PRN migraine 10/28/24 10/28/24 History headache trazodone 50 mg tablet 50 - 100 mg PO DAILY Sleep 10/28/24 10/28/24 History azithromycin 500 mg tablet See Rx Instructions PO .COMPLEX #3 10/29/24 Rx (Zithromax TRI-SE) tabs budesonide-formoterol HFA 80 2 puff inhalation BID #10.2 grams 10/29/24 Rx mcg-4.5 mcg/actuation aerosol inhaler (Symbicort) prednisone 10 mg tablet 10 mg PO DIRECTED #20 tabs 10/29/24 Rx Patient History Medical History (Updated 10/29/24 @ 11:35 by Evelina Ackerman MD, [facility]) 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 Obesity (BMI 30-39.9) Cigarette nicotine dependence Lumbosacral radiculopathy Chronic migraine without aura or status migrainosus Restless leg syndrome Fatty liver Mixed hyperlipidemia Generalized anxiety disorder Gastroesophageal reflux disease Allergic rhinitis Depression Primary osteoarthritis of right knee Osteoarthritis of right knee Lesion of parotid gland s/p surgery Lumbar disc herniation Sarcoidosis Overactive bladder Post traumatic stress disorder History of COVID-19 03/2022 > "resolved" Asthma Bilateral hilar adenopathy syndrome Surgical History Status post right knee replacement 05/17/23 H/O parotidectomy Left Superficial Parotidectomy (01/04/23): Grade view 1, MAC#3, ETT 7 at [facility] S/P bronchoscopy Bronchoscopy/EBUS (11/02/22): GA, LMA #4 I-Gel without issue H/O foot surgery Right History of anesthesia reaction "Awareness" with foot surgery and colonoscopy Remote post-op nausea History of partial hysterectomy History of esophagogastroduodenoscopy (EGD) History of colonoscopy History of tooth extraction Hx laparoscopic cholecystectomy History of repair of right rotator cuff Right History of arthroscopy of left knee Family History (Updated 10/28/24 @ 13:38 by Willem Tolentino MD) Aunt Breast cancer Sister Sarcoid Son Crohn's disease Grandfather (Maternal) Heart disease Mother , age 70 Dementia Father , age 63 Diabetes Other No family history of adverse response to anesthesia Denies family history of Ovarian cancer Prostate cancer Coronary heart disease Myocardial infarction Colorectal cancer Social History (Updated 10/28/24 @ 13:39 by Willem Tolentino MD) Smoking Status: Never smoker Tobacco Type: Cigarettes Age Started Using Tobacco: 11; packs per day: 1; Cigarettes Per Day: 2 cigs/day (previous 2PPD); Second Hand Exposure: Yes (hx in the past); Do You Dip or Chew Tobacco: No; Hx Alcohol Use: No Hx Substance Use: No Preferred Language: Luxembourger Communication Ability: Effective Mechanical Tech Required: No Beliefs That Will Affect Care: None marital status: / marital status details: Spouse Current Living Situation: Alone Current Living Situation Comment: lives at [facility] current occupational status: employed current occupation: PATIENT ACCESS REGISTRATION at [employer] How many Children do You have: 1 How many Children do You have Comment: son lives in [place] Feels Safe at Home: Yes Physical Activity Frequency Comment: MODERATELY ACTIVE Assistive Devices: Nebulizer Review of Systems 2 Review of Systems: All systems reviewed & are unremarkable except as noted in HPI & below Physical Exam 2 Physical Exam: Constitutional: No acute distress HEENT: EOMI, PERRLA Respiratory system: Good air entry bilaterally, no wheeze, no rhonchi, no crackles CVS: S1-S2 positive, no murmurs or gallops Abdomen: Soft, nontender, nondistended, positive bowel sounds x4 Extremities: +2 pulses bilaterally radialis/ dorsalis pedis, no cyanosis, no edema Neuro: Awake alert oriented x3 Psych: Normal mood and affect G/U: No Treadwell Skin: no rashes, warm and dry Lymphatic: no cervical or axillary lymphadenopathy Results & Data Results & Data Vital Signs (Past 12 Hours) Vital Signs Temp Pulse Pulse Pulse Resp BP BP 10/29/24 07:50 36.7 C 100 H 18 106/66 10/29/24 07:32 10/29/24 07:25 105 H 18 10/29/24 03:28 36.6 C 86 18 117/67 10/28/24 23:35 92 H 10/28/24 23:18 36.6 C 91 H 18 115/62 Pulse Ox O2 Del Method 10/29/24 07:50 96 Room Air 10/29/24 07:32 Room Air 10/29/24 07:25 96 Room Air 10/29/24 03:28 94 Room Air 10/28/24 23:35 10/28/24 23:18 95 Room Air Laboratory Results 10/28/24 08:59 10/29/24 07:12 PG Care Time/CCT Total # of Minutes Spent Total Time Spent with Patient: Total time spent is greater than 50% in coordination of care (as documented) at patient's floor/unit and/or counseling patient: Coding Level of Care Code 38284 INT INP/OBS CARE 3/75MIN Diagnoses Acute exacerbation of chronic obstructive airways disease J44.1 Dyspnea on exertion R06.09 Obesity (BMI 30-39.9) E66.9 Cigarette nicotine dependence F17.210 Pulmonary sarcoidosis D86.0 Pulmonary nodules R91.8
--- NOTE | 2024-10-29 10:52 | Hospitalist Progress Note ---
Date of Service October 29, 2024 Assessment & Plan (1) Dyspnea on exertion: Plan: -likely 2nd to sarcoidosis flare - brovana BID + pulmicort BID -pulmonary consult apprecitated -con't elida (2) Pulmonary sarcoidosis: Plan: -con't as above -CT showing stable bilateral upper lobe nodules measuring up to 8mm, consolidation patches at the right middle lobe and partially calcified mediastinal and hilar lymphadenipathies, likely sequelae of prior inflammatory/infectious process. (3) Cigarette nicotine dependence: Plan: -pt reports she had cut back to 1-2 cigarettes/day, then has been fully smoke- free last week or two -offered nicoderm patch but declined such (4) Mixed hyperlipidemia: Plan: cont zetia (5) Generalized anxiety disorder: Plan: cont home meds including buspar prn, trazodone HS, duloxetine daily, wellbutrin (6) Gastroesophageal reflux disease: Plan: cont PPI (7) Depression: Plan: cont home meds including buspar prn, trazodone HS, duloxetine daily, wellbutrin (8) Asthma: (9) Prediabetes: Plan: novolog SSI Plan 58yo female with history of pulmonary sarcoidosis (dx 10/2022 via lung bx), prior tibial bone biopsy showing non-caseating granulomas in 2019, 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 Mrs Daly had relief of symptoms in the ER with bronchodilators. Plan for d/c 10/30/24 Admission and Anticipated Discharge Date Admission Date: October 28, 2024 Subjective No events overnight. Pt states breathing has improved with steroids and nebs. Review of Systems Review of Systems: CONST: Negative for fever, body aches and chills. HENT: Negative for neck pain/stiffness, headache, congestion, sore throat, swelling. EYES: Negative for discharge/pain or vision changes. RESP: Negative for cough/hemoptysis and shortness of breath. CV: Negative chest pain, difficulty breathing, palpitations. ABD: Negative pain, nausea, vomiting. : Negative increase frequency, dysuria, blood in urine or stool. MUSC: Negative for muscle aches, edema. SKIN: Negative rash, lesions/sores. NEURO: Negative headache, dizziness, weakness. Physical Exam Physical Exam: GENERAL APPEARANCE NAD, activity normal for age, well developed/ well nourished, no cyanosis, pallor, or diaphoresis. EYES lids/conjunctiva normal. EARS/NOSE/THROAT Mucous membranes moist, nares normal, lips/teeth normal uvula midline without oral pharyngeal erythema, exudate or swelling TMs normal bilaterally. No lymphangitis/lymphedema. HEAD/NECK normocephalic atraumatic, no facial trauma, neck is supple. RESPIRATORY respiratory effort normal, speaks in full sentences, no tripod position, no accessory muscle use. Lungs clear to auscultation without rhonchi, wheezes, rales CARDIAC Regular rate and rhythm, no edema. ABDOMINAL Soft, ND/NT. No evidence of fluid wave. No pulsatile masses on exam, rebound tenderness, Chowdhury sign or pain over Mcburney's point. MUSCLES/EXTREMITIES No abnormal range of motion, no swelling. SKIN Warm, pink and dry. No rashes, dermatoses, petechiae or lesions. NEUROLOGICAL Speech is clear and appropriate. Normal level of consciousness. Gait and coordination are normal. 5/5 strength in all extremities. PSYCH Normal mood and affect. Judgement/competence is appropriate Results & Data Results & Data Vital Signs (Past 12 Hours) Vital Signs Temp Pulse Pulse Pulse Resp BP BP 10/29/24 10:25 97 H 10/29/24 07:50 36.7 C 100 H 18 106/66 10/29/24 07:32 10/29/24 07:25 105 H 18 10/29/24 03:28 36.6 C 86 18 117/67 10/28/24 23:35 92 H 10/28/24 23:18 36.6 C 91 H 18 115/62 Pulse Ox O2 Del Method 10/29/24 10:25 10/29/24 07:50 96 Room Air 10/29/24 07:32 Room Air 10/29/24 07:25 96 Room Air 10/29/24 03:28 94 Room Air 10/28/24 23:35 10/28/24 23:18 95 Room Air PG Care Time/CCT Total # of Minutes Spent Total Time Spent with Patient: Total time spent is greater than 50% in coordination of care (as documented) at patient's floor/unit and/or counseling patient: Coding Level of Care Code 30349 SUB INP/OBS CARE 235MIN Diagnoses Dyspnea on exertion R06.09 Pulmonary sarcoidosis D86.0 Cigarette nicotine dependence F17.210 Mixed hyperlipidemia E78.2 Generalized anxiety disorder F41.1 Gastroesophageal reflux disease K21.9 Depression F32.A Asthma J45.909 Prediabetes R73.03
--- NOTE | 2024-10-29 11:17 | XCELERA ---
[id number]
[2024-10-29 11:29] VITALS: TEMP 97.5; O2SAT 92
--- NOTE | 2024-10-29 12:10 | Discharge Summary ---
Discharge Summary Date of Service October 29, 2024 Principal Dx & Hospital Course #1 = Principal Diagnosis (1) Dyspnea on exertion: -likely 2nd to sarcoidosis flare - brovana BID + pulmicort BID -pulmonary consult apprecitated -con't elida (2) Pulmonary sarcoidosis: -con't as above -CT showing stable bilateral upper lobe nodules measuring up to 8mm, consolidation patches at the right middle lobe and partially calcified mediastinal and hilar lymphadenipathies, likely sequelae of prior inflammatory/infectious process. (3) Cigarette nicotine dependence: -pt reports she had cut back to 1-2 cigarettes/day, then has been fully smoke- free last week or two -offered nicoderm patch but declined such (4) Mixed hyperlipidemia: cont zetia (5) Generalized anxiety disorder: cont home meds including buspar prn, trazodone HS, duloxetine daily, wellbutrin (6) Gastroesophageal reflux disease: cont PPI (7) Depression: cont home meds including buspar prn, trazodone HS, duloxetine daily, wellbutrin (8) Asthma: (9) Prediabetes: novolog SSI Plan 58yo female with history of pulmonary sarcoidosis (dx 10/2022 via lung bx), prior tibial bone biopsy showing non-caseating granulomas in 2019, 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 Mrs Daly had relief of symptoms in the ER with bronchodilators. 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 She also had PND with orthopnea 2 nights ago. She has had dyspnea on exertion for many years, typically intermittent, but recently it has been daily and persistent. She can only walk about 50 feet at most and will get short of breath. Denies any weight gain, LE edema, or chest pain. The tightness in her chest does get better with resting. She was taking her albuterol inhaler at home without any relief of symptoms. In the ER today she received an albuterol neb x 1 with partial relief of her dyspnea. Denies any recent fevers, chills, URI symptoms, or significant cough (coughs just occasionally). No skin rashes. Denies sick contacts. Denies travel. Records indicate she was advised to have a stress test in the last year but never had this done. Denies any personal or family history of CAD. One of her sisters has sarcoid and her son has Crohn's disease. With respect to tobacco she has been using since age 11. In her younger years she smoked 1/2PPD to 1PPD. She was recently smoking 1-2 cigarettes a day or less; now she is not smoking at all. Declines nicoderm patch. Discharge Exam GENERAL APPEARANCE NAD, activity normal for age, well developed/ well nourished, no cyanosis, pallor, or diaphoresis. EYES lids/conjunctiva normal. EARS/NOSE/THROAT Mucous membranes moist, nares normal, lips/teeth normal uvula midline without oral pharyngeal erythema, exudate or swelling TMs normal bilaterally. No lymphangitis/lymphedema. HEAD/NECK normocephalic atraumatic, no facial trauma, neck is supple. RESPIRATORY respiratory effort normal, speaks in full sentences, no tripod position, no accessory muscle use. Lungs clear to auscultation without rhonchi, wheezes, rales CARDIAC Regular rate and rhythm, no edema. ABDOMINAL Soft, ND/NT. No evidence of fluid wave. No pulsatile masses on exam, rebound tenderness, Chowdhury sign or pain over Mcburney's point. MUSCLES/EXTREMITIES No abnormal range of motion, no swelling. SKIN Warm, pink and dry. No rashes, dermatoses, petechiae or lesions. NEUROLOGICAL Speech is clear and appropriate. Normal level of consciousness. Gait and coordination are normal. 5/5 strength in all extremities. PSYCH Normal mood and affect. Judgement/competence is appropriate Discharge Plan Discharge Items Patient Disposition: Home - Self-Care Reason For Visit: DYSPNEA, SARCOIDOSIS Discharge Diagnosis: COPD exacerbation Activity: Resume your previous activity Non-emergency contact: Primary Care Provider Call non-emergency contact if: you have any medication questions Follow-up/Referrals: Mayi Morales MD [Primary Care Provider] - Diet: Regular Addtl Attending Provider Instructions: Follow up with pmh in 1 week Pending Studies at Discharge: No Stand-Alone Forms: My [facility], Smoking Cessation Medications and DC Order Prescriptions: New prednisone 10 mg tablet 10 mg PO DIRECTED Qty: 20 0RF Rx Instructions: see taper instructions take 4 tabs for 2 days then, take 3 tabs for 2 days then, take 2 tabs for 2 days then take 1 tab for 2 days azithromycin [Zithromax TRI-SE] 500 mg tablet See Rx Instructions .ROUTE .COMPLEX Qty: 3 0RF Rx Instructions: For 250 mg dose pack: take 500 mg today (day 1), then 250 mg for 4 days (days 2-5) Continued albuterol sulfate 90 mcg/actuation HFA aerosol inhaler 1 inh inhalation QID PRN (Reason: Shortness Of Breath Or Wheezing) Qty: 6.7 3RF duloxetine [Cymbalta] 60 mg capsule,delayed release(DR/EC) 60 mg PO QAM Qty: 90 3RF buspirone 15 mg tablet 15 mg PO BID PRN (Reason: anxiety) Qty: 180 3RF gabapentin 600 mg tablet 600 mg PO HS Qty: 90 1RF ezetimibe 10 mg tablet 10 mg PO DAILY Qty: 90 3RF multivitamin [Multiple Vitamins] Tablet 1 tab PO DAILY aspirin 81 mg tablet,delayed release (DR/EC) 81 mg PO DAILY (DME) Spacer for Inhaler Misc See Rx Instructions .Route Qty: 1 0RF Rx Instructions: As directed ciclopirox 8 % solution 1 applic topical DAILY 120 Days Qty: 6.6 1RF Rx Instructions: Apply to affected toenail(s) and adjacent skin once daily in combination with weekly nail trimming and periodic nail debridement. Remove with alcohol every 7 days; continue therapy until nail clearance Ajovy Syringe 225 mg/1.5 mL syringe 225 mg subcut MONTHLY Qty: 4.5 3RF Serevent Diskus 50 mcg/dose blister with device 1 inh inhalation Q12H Qty: 60 3RF bupropion HCl 150 mg tablet extended release 24 hr 150 mg PO QAM Qty: 90 3RF krill jsq-scoey-5-dha-epa 300-90 (27-45) mg Capsule 1 cap PO DAILY cetirizine [Allergy Relief (cetirizine)] 10 mg Tablet 10 mg PO DAILY fluticasone propionate 50 mcg/actuation [place],Suspension 1 spray INTRANASAL DAILY Rx Instructions: administer into each nostril Probiotic 3 billion cell Capsule 3,000 mmu cells PO DAILY Rx Instructions: administer with a meal trazodone 50 mg tablet 50 - 100 mg PO DAILY rizatriptan [Maxalt] 10 mg tablet 10 mg PO DIRECTED MDD 20mg PRN (Reason: migraine headache) Rx Instructions: take 1 tab prn migraine, may repeat in 2hr prn, limit 2-3 days a week omeprazole 20 mg capsule,delayed release(DR/EC) 40 mg PO QAM albuterol sulfate 2.5 mg /3 mL (0.083 %) solution for nebulization 2.5 mg inhalation Q6H PRN (Reason: shortness of breath or wheezing) Discharge Orders: Discharge Order (Routine); Ordered 10/29/24 Ordered By: Dany Hobbs/Other Patient Handouts: Prediabetes, 5 Steps for Eating Healthier Admission Data Admit Date/Time: 10/28/24 13:20 Attending Provider: Dany Cain Admit Provider: Willem Tolentino Primary Care Provider: Mayi Morales Other Providers: Willem Tolentino; Evelina Ackerman Hospital Stay Data Consultations 10/28/24 12:45 ED Decision to Admit Stat 10/28/24 20:33 Consult Pulmonology Routine Diagnostic Imagining Performed 10/28/24 12:08 CT for pulmonary embolism PE [CT angio chest PE protocol] Stat Pending Results Patient Have Any Pending Studies at Discharge: No Discharge Instructions Given to Patient (Per Discharging Provider) Follow up with pmh in 1 week Total Time Total Time Spent Total Time Spent (In Minutes): 50 Coding Level of Care Code 94288 INP/OBS DISCH >30 MIN Diagnoses Dyspnea on exertion R06.09 Pulmonary sarcoidosis D86.0 Cigarette nicotine dependence F17.210 Mixed hyperlipidemia E78.2 Generalized anxiety disorder F41.1 Gastroesophageal reflux disease K21.9 Depression F32.A Asthma J45.909 Prediabetes R73.03
[2024-10-29 13:21] VITALS: BP 115/62
[2024-10-29 14:54] VITALS: PULSE 99
[2024-10-30] MEDS ORDERED: predniSONE 20 MG TAB PO SCH (09:00)
== END 2024-10-29 15:09 | disposition home or self-care (01) ==
LOC: 2W 08:41 → ED 08:41 → SUATTDRO 13:20 → 2W 14:00
DX: K21.9 Gastro-esophageal reflux disease without esophagitis; F17.210 Nicotine dependence, cigarettes, uncomplicated; Z91.041 Radiographic dye allergy status; Z88.8 Allergy status to other drugs, medicaments and biological substances; Z79.899 Other long term (current) drug therapy; R06.09 Other forms of dyspnea; J44.9 Chronic obstructive pulmonary disease, unspecified; E66.9 Obesity, unspecified; D86.0 Sarcoidosis of lung; R91.8 Other nonspecific abnormal finding of lung field; Z79.82 Long term (current) use of aspirin; Z88.1 Allergy status to other antibiotic agents; E78.2 Mixed hyperlipidemia; R73.03 Prediabetes; Z68.35 Body mass index [BMI] 35.0-35.9, adult